=== PATIENT | female | born 1980 | race Caucasian/White ===

== ENCOUNTER 2017-06-19 09:20 | Emergency (ER) | payer OTHER ==
--- NOTE | 2017-06-19 10:02 | ED Physician Chart ---
ED Chief Complaint/HPI - Patient Information Date Seen:: 06/19/17 Time Seen:: 09:54 Chief Complaint:: Positive home and low abdominal pain History of Present Illness:: 37 yo female, , had LMP 04/05/17 and positive home tests on and 06/16/17. She began to have intermittent low abdomen cramping pain (6/10 ) and pressure 2 days ago. The pain lasted for 1 minute or so. She denied N/V, denied vaginal bleed or discharge. The patient had tried to be for 16 years without success. This was her first positive home tests at home. Started vitamin a day ago. She last drank a glass of wine 2 months ago. Allergies:: Allergies Allergy/AdvReac Type Severity Reaction Status Date / Time No Known Allergies Allergy Verified 06/19/17 09:29 Vitals:: Vital Signs - 8 hr 06/19/17 09:29 Temp 98.1 F HR 88 RR 16 BP 127/78 O2 Sat % 98 ED Review of Systems - Review of Systems General/Constitutional: No fever, No chills Skin: No bruising Head: No headache Eyes: No loss of vision ENT: No earache Neck: No neck pain Cardio Vascular: No chest pain Pulmonary: No SOB GI: No nausea, No vomiting, Pain [employer]: No vaginal discharge Musculoskeletal: No bone or joint pain ED Past Medical History - Past Medical History Past Medical History: No significant medical hx Social History: Non Smoker, No Alcohol, No Drug Use Surgical History: Hernia (umbilical ), other (removal of intraabdominal benign mass) Family Medical History - Family Member Mother Ethnicity: Hx Family Cancer: No Hx Family Coronary Artery Disease: No Hx Family Hypertension: No Hx Family Stroke: No Hx Family Diabetes: No Hx Family Seizures: No Hx Family Dementia: No Hx Family HIV: No Hx Family Hepatitis: No Hx Family Psychiatric Problems: No ED Physical Exam - Physical Examination General/Constitutional: Awake, Alert Head: Atraumatic Eyes: PERRL, EOMI Skin: No ecchymosis ENMT: Nasal exam nl Neck: No nuchal rigidity Respiratory: Clear to Auscultation, No Wheeze/Rhonchi/Rales Cardio Vascular: RRR, No murmur, gallop, rubs, NL S1 S2 Other GI comments:: Lower quadrant tenderness Extremities: normal strength in all extremities Neuro/Psych: No focal deficits ED Labs/Radiology/EKG Results - Lab Results Results: hC - Radiology Results Results: OB u/s: IUP at 7 weeks, pole and yolk sac seen ED Assessment - Assessment General Assessment: 7 week gestation Abdominal pain Assessment/Comments:: OB u/s hCG quantity D/c home F/u PCP and [employer] ED Septic Shock - . Is Septic Shock (SBP<90, OR Lactate>4 mmol\L) present?: No - <6hrs of presentation: Vital Signs: Vital Signs - 8 hr 06/19/ 09:29 Temp 98.1 F HR 88 RR 16 BP 127/78 O2 Sat % 98 ED Reassessment (Disposition) - Reassessment Reassessment Condition:: Improved - Aftercare/Follow up Instructions Aftercare/Follow-Up Instructions:: Counseled pt regarding lab results/diagnosis & need follow up, Refer to Discharge Instructions - Patient Disposition Discharge/Transfer:: Home ED Discharge Plan - Patient Disposition Instructions: ABCs of
--- NOTE | 2017-06-19 12:20 | Diagnostic Imaging Report ---
Exam: Pelvic ultrasound HISTORY: Low abdominal pain Findings: Real-time ultrasound examination of the pelvis performed planes. The study demonstrates a uterus measuring 9.9 x 6.2 x 6.8 cm with the gestational sac measuring 2.0 cm roughly correspond to estimated gestational age is 7 weeks 0 days. pole is not visualized. There is no cardiac activity. There is no evidence of sac Adnexa is normal. The right ovary measures 1.5 x 1.1 cm diameter. Left ovary is not seen. No free fluid is noted. The study is limited due to patient body habitus. IMPRESSION 1. Lucency in the endometrial canal measuring 2.0 cm diameter roughly correspond to estimated gestational age of 7 weeks 0 days, no evidence for pole cardiac activity. This might represent missed . Right ovum cannot be excluded. Clinical correlation serial hCG titers and follow up examination of pelvis is recommended. The study is limited due to patient body habitus.
== END 2017-06-19 12:30 | disposition home or self-care (01) ==
LOC: ER 09:20
DX: O26.891 Other specified pregnancy related conditions, first trimester (principal); R10.30 Lower abdominal pain, unspecified; Z3A.01 Less than 8 weeks gestation of pregnancy
CPT/HCPCS: 36415-UA; 76801-TC; 84702-TC; 84703-TC